=== PATIENT | female | born 1965 | race American Indian/Alaskan Native ===

== ENCOUNTER 2017-02-25 12:14 | Emergency (ER) | payer MEDICARE ==
[2017-02-25 12:30] VITALS: BP 164/77
[2017-02-25 13:00] LABS: Basophils % (Auto) 1.5 % (0.0-1.8); Eosinophils % (Auto) 2.3 % (0.0-4.3); Hematocrit 44.4 % (30.3-42.9); Mean Corpuscular HGB Conc 34 % (30-34); Mean Corpuscular Hemoglobin 31 pg (28-32); Mean Corpuscular Volume 92 fl (79-97); Platelet Count 256 K/mm3 (140-440); Red Blood Count 4.83 M/mm3 (3.65-5.03); Red Cell Distribution Width 13.3 % (13.2-15.2); White Blood Count 7.1 K/mm3 (4.5-11.0)
[2017-02-25 13:10] LABS: Anion Gap 18 mmol/L; Blood Urea Nitrogen 14 mg/dL (7-17); Calcium 9.3 mg/dL (8.4-10.2); Carbon Dioxide 21 mmol/L (22-30); Chloride 100.8 mmol/L (98-107); Glucose 225 mg/dL (65-100); Potassium 4.1 mmol/L (3.6-5.0); Sodium 136 mmol/L (137-145)
--- NOTE | 2017-02-25 13:27 | Emergency Department Report ---
ED Syncope HPI - General Chief Complaint: Syncope Stated Complaint: SYNCOPE EPISODE Time Seen by Provider: 02/25/17 12:37 - History of Present Illness Timing/Prior Episodes: no prior history, single episode today Precipitating Factors: Positive: other (stress and anxiuos) Current Symptoms: back to normal. denies: blurred vision, chest pain, diaphoresis, dizziness, headache, injury, lightheadedness, loss of bladder control, loss of bowel control, motionless - Related Data Allergies/Adverse Reactions: Allergies No Known Allergies Allergy (Unverified 02/25/17 12:17) Home Medications: Ambulatory Orders Carvedilol [Coreg] 12.5 mg PO BID 02/25/17 Levothyroxine [Synthroid] 300 mg PO DAILY 02/25/17 Metformin HCl [Glucophage] 500 mg PO BID 02/25/17 Simvastatin [Zocor TAB] 40 mg PO QHS 02/25/17 amLODIPine [Norvasc] 5 mg PO DAILY 02/25/17 ED Review of Systems ROS: Stated complaint: SYNCOPE EPISODE Other details as noted in HPI Comment: All other systems reviewed and negative ED Past Medical Hx - Past Medical History Previous Medical History?: Yes Hx Hypertension: Yes Hx Diabetes: Yes Additional medical history: bone disease. hyperthyroid - Surgical History Past Surgical History?: Yes Additional Surgical History: - Social History Smoking Status: Current Every Day Smoker Substance Use Type: Alcohol - Medications Home Medications: Home Medications Medication Instructions Recorded Confirmed Last Taken Type Carvedilol [Coreg] 12.5 mg PO BID 02/25/17 02/25/17 02/24/17 History Levothyroxine [Synthroid] 300 mg PO DAILY 02/25/17 02/25/17 02/24/17 History Metformin HCl [Glucophage] 500 mg PO BID 02/25/17 02/25/17 02/24/17 History Simvastatin [Zocor TAB] 40 mg PO QHS 02/25/17 02/25/17 02/24/17 History amLODIPine [Norvasc] 5 mg PO DAILY 02/25/17 02/25/17 02/24/17 History ED Physical Exam - General Limitations: No Limitations General appearance: alert, in no apparent distress - Head Head exam: Present: atraumatic, normocephalic - Eye Eye exam: Present: normal appearance - ENT ENT exam: Present: normal exam, normal orophraynx, mucous membranes moist - Neck Neck exam: Present: normal inspection - Respiratory Respiratory exam: Present: normal lung sounds bilaterally. Absent: respiratory distress - Cardiovascular Cardiovascular Exam: Present: regular rate, normal rhythm. Absent: systolic murmur, diastolic murmur, rubs, gallop - GI/Abdominal GI/Abdominal exam: Present: soft, normal bowel sounds - Extremities Exam Extremities exam: Present: normal inspection - Back Exam Back exam: Present: normal inspection - Neurological Exam Neurological exam: Present: alert, oriented X3 - Psychiatric Psychiatric exam: Present: normal affect, normal mood - Skin Skin exam: Present: warm, dry, intact, normal color. Absent: rash ED Course Vital Signs 02/25/17 12:17 Temperature 98.2 F Pulse Rate 66 Respiratory 18 Rate Blood Pressure 164/77 O2 Sat by Pulse 99 Oximetry ED Medical Decision Making - Lab Data Result diagrams: 02/25/17 12:36 02/25/17 12:36 - EKG Data Interpretation: no acute changes - Medical Decision Making patient doing well at bedside , no complaints at this time , wishes to go home, her partner at bedside, he will be with her throughout the day, has appointment wiht her doctor on wednesday Critical care attestation.: If time is entered above; I have spent that time in minutes in the direct care of this critically ill patient, excluding procedure time. ED Disposition Clinical Impression: Syncope, Anxiety Disposition: DC-01 TO HOME OR SELFCARE Is pt being admited?: No Does the pt Need Aspirin: No Condition: Good Instructions: Syncope (ED) Referrals: LAURA TEAGUE MD [Primary Care Provider] - 3-5 Days Time of Disposition: 13:26
== END 2017-02-25 14:06 | disposition home or self-care (01) ==
LOC: ED 12:14
DX: R55 Syncope and collapse (principal); R41.9 Unspecified symptoms and signs involving cognitive functions and awareness; I10 Essential (primary) hypertension; E11.9 Type 2 diabetes mellitus without complications; F17.200 Nicotine dependence, unspecified, uncomplicated
CPT/HCPCS: 36415; 80048; 84484; 85025; 93005; 93010; 99285

== ENCOUNTER 2022-05-03 07:36 | Emergency (ER) | payer MEDICARE ==
[2022-05-03] MEDS ORDERED: HYDROcodone/ACETAMINOPHEN 10-325MG TAB PO ONE (11:00)
--- NOTE | 2022-05-03 11:54 | Vascular Lab Report ---
DUPLEX DOPPLER LOWER EXTREMITY VEINS, LEFT INDICATION / CLINICAL INFORMATION: left leg pain. TECHNIQUE: Duplex doppler imaging was performed through the veins of the left lower extremity using v enous compression and other maneuvers. COMPARISON: None available. FINDINGS: LEFT COMMON FEMORAL VEIN: Negative. LEFT FEMORAL VEIN: Negative. LEFT POPLITEAL VEIN: Negative. LEFT CALF VEINS: Negative. ADDITIONAL FINDINGS: None. IMPRESSION: 1. No sonographic evidence for DVT in the left lower extremity. Signer Name: Faustino Benitez MD Signed: 05/03/2022 11:50 AM Workstation Name: [email or web address]
--- NOTE | 2022-05-03 12:01 | XRay Report ---
Left knee 3 views INDICATION: Knee pain FINDINGS: Tricompartmental degenerative change. No acute fracture or dislocation. Mild sclerosis in t he lateral aspect of distal femoral metaphysis could represent ossifying fibroma. Pelvis and left hip 2 views INDICATION: Hip pain FINDINGS: Degenerative change in bilateral hips. No acute fracture dislocation. Pelvic fibroids sugge sted Signer Name: Jaylen Gomez MD Signed: 05/03/2022 11:56 AM Workstation Name: [email or web address]
[2022-05-03 12:44] LABS: Basophils # (Auto) 0.1 K/mm3 (0.0-0.1); Basophils % (Auto) 0.8 % (0.0-1.8); Eosinophils # (Auto) 0.2 K/mm3 (0.0-0.4); Eosinophils % (Auto) 1.5 % (0.0-4.3); Hematocrit 44.3 % (30.3-42.9); Lymphocytes # (Auto) 3.4 K/mm3 (1.2-5.4); Lymphocytes % (Auto) 31.7 % (13.4-35.0); Mean Corpuscular HGB Conc 34 % (30-34); Mean Corpuscular Volume 93 fl (79-97); Monocytes # (Auto) 0.7 K/mm3 (0.0-0.8); Monocytes % (Auto) 6.8 % (0.0-7.3); Platelet Count 301 K/mm3 (140-440); Red Blood Count 4.79 M/mm3 (3.65-5.03); Red Cell Distribution Width 13.1 % (13.2-15.2)
[2022-05-03 13:10] LABS: Alanine Aminotransferase 16 units/L (7-56); Albumin 4.7 g/dL (3.9-5); BUN/Creatinine Ratio 17; Blood Urea Nitrogen 10 mg/dL (7-17); Calcium 10.3 mg/dL (8.4-10.2); Hemolysis Index 4
[2022-05-03] MEDS ORDERED: SODIUM CHLORIDE 0.9% 1000 ML 1,000 ML IV ONE ×2 (13:13→15:58)
[2022-05-03] MEDS ORDERED: INSULIN REGULAR, HUMAN 100 UNITS/1 ML IV ONE ×2 (13:13→15:58)
--- NOTE | 2022-05-03 14:55 | Emergency Department Report ---
ED Back Pain/Injury HPI - General Chief Complaint: Extremity Injury, Lower Stated Complaint: LFT LEG PAIN Time Seen by Provider: 05/03/22 10:49 Source: patient Limitations: No Limitations - History of Present Illness Initial Comments: This is a 56-year-old female nontoxic, well nourished in appearance, no acute signs of distress presents to the ED with c/o of acute on chronic lower back/hip pain with radiation to left leg x several days. Patient also stated that she started to have left knee pains. Patient states has history of sciatica nerve pain which is similar symptoms as today. Patient states that pain radiates through to his left lower extremity. Patient denies any injuries or trauma. Denies any bladder or bowel instability. Patient denies any urinary symptoms. Denies any fever, chills, nausea, vomiting, headache, stiff neck, chest pain or shortness of breath. Patient denies any numbness or tingling. Denies any allergies. Patient did has history of diabetes which has not been taking her metformin for the past 2-3 days because she was in the hospital by her mother. MD Complaint: back pain -: days(s) Similar Symptoms Previously: Yes Place: home Radiation: left leg Severity: mild Severity scale (0 -10): 8 Quality: aching Improves With: immobilization Worsens With: movement, walking Associated Symptoms: denies other symptoms. denies: confusion, chest pain, numbness, difficulty walking, cough, difficulty urinating, diaphoresis, incontinence, fever/chills, constipation, headaches, abdominal pain, loss of appetite, malaise, nausea/vomiting, rash, seizure, shortness of breath, syncope - Related Data Home Medications Medication Instructions Recorded Confirmed Last Taken Levothyroxine (Nf) [Synthroid (Nf)] 300 mg PO DAILY 02/25/17 02/25/17 02/24/17 Metformin HCl [Glucophage] 500 mg PO BID 02/25/17 02/25/17 02/24/17 Simvastatin (NF) [Zocor TAB] 40 mg PO QHS 02/25/17 02/25/17 02/24/17 amLODIPine [Norvasc] 5 mg PO DAILY 02/25/17 02/25/17 02/24/17 carvediloL [Coreg] 12.5 mg PO BID 02/25/17 02/25/17 02/24/17 Previous Rx's Medication Instructions Recorded Last Taken Type Naproxen 500 mg PO Q12H PRN #12 tab 05/03/22 Unknown Rx cephALEXin [Keflex] 500 mg PO Q6HR #28 capsule 05/03/22 Unknown Rx Allergies Allergy/AdvReac Type Severity Reaction Status Date / Time No Known Allergies Allergy Unverified 02/25/17 12:17 ED Review of Systems ROS: Stated complaint: LFT LEG PAIN Other details as noted in HPI Constitutional: denies: chills, fever Eyes: denies: eye pain, eye discharge, vision change ENT: denies: ear pain, throat pain Respiratory: denies: cough, shortness of breath, wheezing Cardiovascular: denies: chest pain, palpitations Endocrine: no symptoms reported Gastrointestinal: denies: abdominal pain, nausea, diarrhea Genitourinary: denies: urgency, dysuria, discharge Musculoskeletal: back pain. denies: joint swelling, arthralgia Skin: denies: rash, lesions Neurological: denies: headache, weakness, paresthesias Psychiatric: denies: anxiety, depression Hematological/Lymphatic: denies: easy bleeding, easy bruising ED Past Medical Hx - Past Medical History Previous Medical History?: Yes Hx Hypertension: Yes Hx Diabetes: Yes Additional medical history: bone disease. hyperthyroid - Surgical History Past Surgical History?: Yes Additional Surgical History: - Social History Smoking Status: Current Every Day Smoker Substance Use Type: Alcohol - Medications Home Medications: Home Medications Medication Instructions Recorded Confirmed Last Taken Type Levothyroxine (Nf) [Synthroid (Nf)] 300 mg PO DAILY 02/25/17 02/25/17 02/24/17 History Metformin HCl [Glucophage] 500 mg PO BID 02/25/17 02/25/17 02/24/17 History Simvastatin (NF) [Zocor TAB] 40 mg PO QHS 02/25/17 02/25/17 02/24/17 History amLODIPine [Norvasc] 5 mg PO DAILY 02/25/17 02/25/17 02/24/17 History carvediloL [Coreg] 12.5 mg PO BID 02/25/17 02/25/17 02/24/17 History Naproxen 500 mg PO Q12H PRN #12 tab 05/03/22 Unknown Rx cephALEXin [Keflex] 500 mg PO Q6HR #28 capsule 05/03/22 Unknown Rx ED Physical Exam - General Limitations: No Limitations General appearance: alert, in no apparent distress - Head Head exam: Present: atraumatic, normocephalic - Eye Eye exam: Present: normal appearance - Neck Neck exam: Present: normal inspection, full ROM. Absent: lymphadenopathy - Respiratory Respiratory exam: Present: normal lung sounds bilaterally. Absent: respiratory distress, wheezes, rales, rhonchi, stridor, chest wall tenderness, accessory muscle use, decreased breath sounds, prolonged expiratory - Cardiovascular Cardiovascular Exam: Present: normal rhythm, normal heart sounds. Absent: irregular rhythm, systolic murmur, diastolic murmur, rubs, gallop - GI/Abdominal GI/Abdominal exam: Present: soft, normal bowel sounds. Absent: distended, tenderness, guarding, rebound, rigid, diminished bowel sounds - Extremities Exam Extremities exam: Present: normal inspection, full ROM, tenderness, normal capillary refill, calf tenderness. Absent: pedal edema, joint swelling - Expanded Lower Extremity Exam Left Hip exam: Present: normal inspection, full ROM, tenderness, external rotation, internal rotation, pelvic stability. Absent: swelling, abrasion, laceration, ecchymosis, deformity, crepidus, dislocation, erythema, shortening Upper Leg exam: Present: normal inspection, full ROM. Absent: tenderness, swelling, abrasion, laceration, ecchymosis, deformity, crepidus, dislocation, erythema Knee exam: Present: normal inspection, full ROM, tenderness, full knee extension. Absent: swelling, abrasion, laceration, ecchymosis, deformity, crepidus, dislocation, erythema, effusion, pain w/ pronation/supination, posterior draw sign, pain/laxity with valgus, pain/laxity with varus Lower Leg exam: Present: normal inspection, full ROM, tenderness. Absent: swelling, abrasion, laceration, ecchymosis, deformity, crepidus, dislocation, erythema, palpable cord, Nicky's sign Ankle exam: Present: normal inspection, full ROM. Absent: tenderness, swelling Foot/Toe exam: Present: normal inspection, full ROM. Absent: tenderness, swelling Neuro vascular tendon exam: Present: no vascular compromise Gait: Positive: observed and limited by pain - Back Exam Back exam: Present: normal inspection, full ROM, paraspinal tenderness (left lumbar paraspinal). Absent: tenderness, CVA tenderness (R), CVA tenderness (L), muscle spasm, vertebral tenderness, rash noted - Neurological Exam Neurological exam: Present: alert, oriented X3 - Psychiatric Psychiatric exam: Present: normal affect, normal mood - Skin Skin exam: Present: warm, dry, intact, normal color. Absent: rash ED Course Vital Signs 05/03/22 08:09 Temperature 98.1 F Pulse Rate 101 H Respiratory 20 Rate Blood Pressure 142/91 [Right] O2 Sat by Pulse 99 Oximetry - Reevaluation(s) Reevaluation #1: 05/03/22 15:01 Patient is speaking in full sentences with no signs of distress noted. ED Medical Decision Making - Lab Data Result diagrams: 05/03/22 12:01 05/03/22 12:01 - Radiology Data [address] [address] XRay Report Signed Patient: ANNIE BONILLA MR#: [id number] : 1965 Acct:[id number] Age/Sex: 56 / F ADM Date: 05/03/22 Loc: ED Attending Dr: Ordering Physician: UCHE CHAUDHARY NP Date of Service: 05/03/22 Procedure(s): XR knee 3V LT Accession Number(s): [id number] cc: UCHE CHAUDHARY NP Fluoro Time In Minutes: Left knee 3 views INDICATION: Knee pain FINDINGS: Tricompartmental degenerative change. No acute fracture or dislocation. Mild sclerosis in the lateral aspect of distal femoral metaphysis could represent ossifying fibroma. Pelvis and left hip 2 views INDICATION: Hip pain FINDINGS: Degenerative change in bilateral hips. No acute fracture dislocation. Pelvic fibroids suggested Signer Name: Jaylen Gomez MD Signed: 05/03/2022 11:56 AM Workstation Name: [email or web address] Transcribed By: Dictated By: SAMMY GOMEZ MD Electronically Authenticated By: SAMMY GOMEZ MD Signed Date/Time: 05/03/22 1156 DD/ 1155 TD/TT: [address] [address] XRay Report Signed Patient: ANNIE BONILLA MR#: [id number] : 1965 Acct:[id number] Age/Sex: 56 / F ADM Date: 05/03/22 Loc: ED Attending Dr: Ordering Physician: UCHE CHAUDHARY NP Date of Service: 05/03/22 Procedure(s): XR hip 2-3V LT Accession Number(s): [id number] cc: UCHE CHAUDHARY NP Fluoro Time In Minutes: Left knee 3 views INDICATION: Knee pain FINDINGS: Tricompartmental degenerative change. No acute fracture or dislocation. Mild sclerosis in the lateral aspect of distal femoral metaphysis could represent ossifying fibroma. Pelvis and left hip 2 views INDICATION: Hip pain FINDINGS: Degenerative change in bilateral hips. No acute fracture dislocation. Pelvic fibroids suggested Signer Name: Jalyen Gomez MD Signed: 05/03/2022 11:56 AM Workstation Name: [email or web address] Transcribed By: CW Dictated By: SAMMY GOMEZ MD Electronically Authenticated By: SAMMY GOMEZ MD Signed Date/Time: 05/03/22 1156 DD/ 1155 TD/TT: [facility] [address] [place] [address] Vascular Lab Report Signed Patient: ANNIE BONILLA MR#: [id number] : 1965 Acct:[id number] Age/Sex: 56 / F ADM Date: 05/03/22 Loc: ED Attending Dr: Ordering Physician: UCHE CHAUDHARY NP Date of Service: 05/03/22 Procedure(s): VL venous duplex LE LT Accession Number(s): [id number] cc: UCHE CHAUDHARY NP DUPLEX DOPPLER LOWER EXTREMITY VEINS, LEFT INDICATION / CLINICAL INFORMATION: left leg pain. TECHNIQUE: Duplex doppler imaging was performed through the veins of the left lower extremity using venous compression and other maneuvers. COMPARISON: None available. FINDINGS: LEFT COMMON FEMORAL VEIN: Negative. LEFT FEMORAL VEIN: Negative. LEFT POPLITEAL VEIN: Negative. LEFT CALF VEINS: Negative. ADDITIONAL FINDINGS: None. IMPRESSION: 1. No sonographic evidence for DVT in the left lower extremity. Signer Name: Zach Benitez MD Signed: 05/03/2022 11:50 AM Workstation Name: [email or web address] Transcribed By: Dictated By: ZACH BENITEZ MD Electronically Authenticated By: ZACH BENITEZ MD Signed Date/Time: 05/03/22 1150 DD/ 1149 TD/TT: - Medical Decision Making Patient is stable and was examined by me. Labs and ultrasound/x-ray has been obtained and dictated by radiologist. Patient is notified of the results with no questions noted by the patient. Patient received medical treatment in ER which stated improved and subsided. Instructed patient to continue taking her medication for diabetes as prescribed by her primary care doctor. Fingerstick repeat prior to discharge with blood glucose decreased prior to discharge. Pat ient be discharged and was instructed to follow-up with a primary care doctor in 3-5 days or if symptoms worsen and continue return to emergency room as soon as possible. At time of discharge, the patient does not seem toxic or ill in appearance. No acute signs of distress noted. Patient agrees to discharge treatment plan of care. No further questions noted by the patient. Critical care attestation.: If time is entered above; I have spent that time in minutes in the direct care of this critically ill patient, excluding procedure time. ED Disposition Clinical Impression: Left leg pain, Arthritis of left knee, Arthritis of left hip, History of medication noncompliance Diabetes Qualifiers: Diabetes mellitus type: type 2 Diabetes mellitus terminal block assembler insulin use: without usp use Diabetes mellitus complication status: with hyperglycemia Qualified Code(s): E11.65 - Type 2 diabetes mellitus with hyperglycemia Chronic back pain Qualifiers: Back pain location: low back pain Back pain laterality: left Sciatica presence: with sciatica Sciatica laterality: sciatica of left side Qualified Code(s): M54.42 - Lumbago with sciatica, left side UTI (urinary tract infection) Qualifiers: Urinary tract infection type: acute cystitis Hematuria presence: without hematuria Qualified Code(s): N30.00 - Acute cystitis without hematuria Disposition: HOME / SELF CARE / HOMELESS Is pt being admited?: No Does the pt Need Aspirin: No Condition: Stable Instructions: Urinary Tract Infection, Adult, Diabetes Mellitus Type 2 in Adults (ED) Additional Instructions: Follow-up with a primary care doctor in 3-5 days or if symptoms worsen and continue return to emergency room as soon as possible. Prescriptions: cephALEXin [Keflex] 500 mg PO Q6HR #28 capsule Naproxen 500 mg PO Q12H PRN #12 tab PRN Reason: Pain , Severe (7-10) Referrals: KATLIN VIEIRA MD [Primary Care Provider] - 3-5 Days PRIMARY CARE, [Referring] - 3-5 Days Time of Disposition: 16:57
[2022-05-03 15:42] LABS: Bacteria,Urine 1+ /HPF (Negative); Mucus,Urine FEW /HPF
[2022-05-03 15:52] LABS: Color,Urine Yellow (Yellow)
[2022-05-03 17:14] VITALS: BP 195/97
== END 2022-05-03 17:08 | disposition home or self-care (01) ==
LOC: ED 07:36
DX: N39.0 Urinary tract infection, site not specified (principal); M79.605 Pain in left leg; M17.12 Unilateral primary osteoarthritis, left knee; M16.12 Unilateral primary osteoarthritis, left hip; M54.50 Low back pain, unspecified; E11.9 Type 2 diabetes mellitus without complications; I10 Essential (primary) hypertension; Z91.14 Patient's other noncompliance with medication regimen; F17.200 Nicotine dependence, unspecified, uncomplicated
CPT/HCPCS: 36415; 73502; 73562; 80053; 81001; 82805; 82962; 85025; 87086; 93971; 96361; 96374; 96376; 99285; J7030; Q9967; J1815